=== PATIENT | male | born 1975 | race Caucasian/White ===

== ENCOUNTER 2019-08-31 06:46 | Emergency (ER) | payer BC ==
--- NOTE | 2019-08-31 07:53 | RAD ---
EXAM: 3 views of the left shoulder HISTORY: Shoulder pain COMPARISON: None FINDINGS: There is no evidence of acute fracture or dislocation. No degenerative changes are present. No soft tissue swelling is seen. The visualized thorax is unremarkable. IMPRESSION: No evidence of acute osseous abnormality.
== END 2019-08-31 08:11 | disposition home or self-care (01) ==
LOC: ERS 06:46
DX: S40.012A Contusion of left shoulder, initial encounter (principal); E11.9 Type 2 diabetes mellitus without complications; I10 Essential (primary) hypertension; F17.200 Nicotine dependence, unspecified, uncomplicated; Z79.899 Other long term (current) drug therapy; Z79.52 Long term (current) use of systemic steroids; W18.30XA Fall on same level, unspecified, initial encounter